=== PATIENT | male | born 1990 | race Caucasian/White ===

== ENCOUNTER 2020-06-09 18:17 | Emergency (ER) | payer MEDICAID ==
[~2020-06-09] VITALS: Ht 182.9 cm; Wt 80.0 kg
[2020-06-09] MEDS ORDERED: DEXAMETHASONE 4MG TABLET PO ONE (19:00)
[2020-06-09] MEDS ORDERED: MAGNESIUM CITRATE 300ML SOLUTION PO ONE (19:00)
[2020-06-09 19:50] VITALS: BP 141/77
[2020-06-09] MEDS ORDERED: DOCU-150 MT (23:01)
== END 2020-06-09 20:08 | disposition home or self-care (01) ==
LOC: ER 18:17
DX: K59.00 Constipation, unspecified (principal)
CPT/HCPCS: 99283; J8540

== ENCOUNTER 2020-06-09 22:34 | Emergency (ER) | payer MEDICAID ==
[~2020-06-09] VITALS: Ht 180.3 cm; Wt 81.0 kg
[2020-06-09] MEDS ORDERED: DOCU-150 MT (23:01)
[2020-06-09 23:18] VITALS: BP 114/68
== END 2020-06-09 23:23 | disposition home or self-care (01) ==
LOC: ER 22:34
DX: K59.00 Constipation, unspecified (principal); Z98.890 Other specified postprocedural states
CPT/HCPCS: 99282